=== PATIENT | female | born 1990 ===

== ENCOUNTER 2019-01-25 02:56 | Emergency (ER) | payer SELFPAY ==
[2019-01-25 03:08] VITALS: BMI 23.0
[2019-01-25 03:13] VITALS: TEMP 97.3; O2SAT 100
[2019-01-25] MEDS ORDERED: Sodium Chloride 0.9% 1,000 ML IV STA (03:33)
[2019-01-25 03:56] LABS: ALB/GLOB RATIO 1.7 (1.1-1.8); ALBUMIN 5.2 g/dL (3.0-4.8); ALT/SGPT 8 U/L (7-56); AST/SGOT 32 U/L (14-36); BLOOD UREA NITROGEN 6 mg/dL (7-21); CALCIUM 10.8 mg/dL (8.4-10.5); GFR NON-AFRICAN AMERICAN > 60; LIPASE 133 U/L (23-300)
[2019-01-25 04:00] LABS: BASO # 0.04 K/mm3 (0.0-2.0); BASO % 0.5 % (0.0-3.0); EOS # 0.1 (0.0-0.7); EOS % 0.7 % (1.5-5.0); HEMOGLOBIN 15.1 g/dL (12.0-16.0); LYMPH % 34.9 % (22.0-35.0); MEAN CELL VOLUME 88.4 fl (80.0-105.0); MEAN CORPUSCULAR HEMOGLOBIN 30.8 pg (25.0-35.0); MEAN CORPUSCULAR HGB CONC 34.9 g/dl (31.0-37.0); MEAN PLATELET VOLUME 10.7 fl (7.0-11.0); MONO # 0.6 (0.1-0.6); MONO % 6.3 % (1.0-6.0); RBC 4.9 10^6/uL (3.5-6.1); RED CELL DISTRIBUTION WIDTH 12.8 % (11.5-14.5); WHITE BLOOD COUNT 8.7 10^3/uL (4.5-11.0)
--- NOTE | 2019-01-25 04:17 | ED PDOC ---
Arrival/HPI - General Chief Complaint: GI Problem Time Seen by Provider: 01/25/19 02:58 - History of Present Illness Narrative History of Present Illness (Text): 01/25/19 04:14 A 28 year old female, whose past medical history includes anemia, presents to [facility] emergency department complaining of nausea, vomiting, diarrhea, and abdominal cramping upon waking up at 01:00 today. Patient reports she began experiencing chills and tingling throughout her body associated with symptoms. Notes also feeling weak all over her body. Patient denies any bloody stool, or any other complaints at this time. Denies any sick contacts or eating anything unusual. Past Medical History - Provider Review Nursing Documentation Reviewed: Yes - Hematological/Oncological Hx Anemia: Yes - Psychiatric Hx Substance Use: Yes Family/Social History - Physician Review Nursing Documentation Reviewed: Yes Family/Social History: No Known Family HX Smoking Status: Never Smoked Hx Alcohol Use: Yes Frequency of alcohol use: Socially Hx Substance Use: Yes Substance used: Marijuana Allergies/Home Meds Allergies/Adverse Reactions: Allergies Penicillins Allergy (Verified 01/25/19 03:07) ANAPHYLAXIS Review of Systems - Physician Review All systems were reviewed & negative as marked: Yes - Review of Systems Constitutional: Night Sweats, Other (weakness) Gastrointestinal: Diarrhea, Nausea, Vomiting, Other (abdominal cramping). absent: Stool Changes (no bloody stool) Neurological: Other (tingling throughout body associated with symptoms ) Physical Exam Vital Signs Reviewed: Yes Vital Signs Temp Pulse Resp BP Pulse Ox 01/25/19 03:12 97.3 F L 71 18 129/81 100 Temperature: Afebrile Blood Pressure: Normal Pulse: Regular Respiratory Rate: Normal Appearance: Positive for: Well-Appearing, Non-Toxic, Comfortable Pain Distress: Moderate Mental Status: Positive for: Alert and Oriented X 3 - Systems Exam Head: Present: Atraumatic, Normocephalic Respiratory/Chest: Present: Clear to Auscultation, Good Air Exchange. No: Respiratory Distress, Accessory Muscle Use Cardiovascular: Present: Regular Rate and Rhythm, Normal S1, S2. No: Murmurs Abdomen: Present: Tenderness (mild diffuse tenderness). No: Distention, Peritoneal Signs, Rebound, Guarding Back: Present: Normal Inspection Upper Extremity: Present: Normal Inspection. No: Cyanosis, Edema Lower Extremity: Present: Normal Inspection. No: Edema Neurological: Present: GCS=15, CN II-XII Intact, Speech Normal Skin: Present: Diaphoretic (mild) Psychiatric: Present: Alert, Oriented x 3, Normal Insight, Normal Concentration Medical Decision Making ED Course and Treatment: 01/25/19 04:18 Impression: 28 year old female with nausea, vomiting, diarrhea, and abdominal cramping. Plan: -- Toradol -- Zofran -- IV Fluids -- Labs -- Reassess and disposition Progress Notes: Patient given 1L NS bolus, toradol ivp for pain, zofran ivp for nausea. On re-eval, patient still reports some nausea. Reglan ivp given. Lab results reviewed and discussed with patient. Stable for discharge home. Rx for zofran 8mg odt provided. Advised outpatient followup. Return to the ED for any new or worsening symptoms. - Lab Interpretations Lab Results: Total Bilirubin 0.4 mg/dL (0.2-1.3) 01/25/19 03:30 AST 32 U/L (14-36) 01/25/19 03:30 ALT 8 U/L (7-56) 01/25/19 03:30 Alkaline Phosphatase 74 U/L (38-126) 01/25/19 03:30 Total Protein 8.3 g/dL (5.8-8.3) 01/25/19 03:30 Albumin 5.2 g/dL (3.0-4.8) H 01/25/19 03:30 Globulin 3.1 gm/dL 01/25/19 03:30 Albumin/Globulin Ratio 1.7 (1.1-1.8) 01/25/19 03:30 Lipase 133 U/L (23-300) 01/25/19 03:30 - Medication Orders Current Medication Orders: Sodium Chloride (Sodium Chloride 0.9%) 1,000 mls @ 1,000 mls/hr IV .Q1H STA Stop: 01/25/19 04:32 Last Admin: 01/25/19 03:38 Dose: 1,000 mls/hr eMAR Start Stop Document 01/25/19 03:38 RD (Rec: 01/25/19 03:38 RD [id number]) Intravenous Solution Start Date 01/25/19 Start Time 03:38 End Date 01/25/19 End time 04:38 Total Infusion Time 60 Discontinued Medications Ketorolac Tromethamine (Toradol) 30 mg IVP STAT STA Stop: 01/25/19 03:34 Ondansetron HCl (Zofran Inj) 4 mg IVP STAT STA Stop: 01/25/19 03:34 Last Admin: 01/25/19 03:50 Dose: 4 mg IVP Administration Document 01/25/19 03:50 EB (Rec: 01/25/19 03:50 EB [id number]) Charges for Administration # of IVP Administrations 1 - Scribe Statement The provider has reviewed the documentation as recorded by the Scribe Jamir Edmonds Provider Scribe Attestation: All medical record entries made by the Scribe were at my direction and personally dictated by me. I have reviewed the chart and agree that the record accurately reflects my personal performance of the history, physical exam, medical decision making, and the department course for this patient. I have also personally directed, reviewed, and agree with the discharge instructions and disposition. Disposition/Present on Arrival - Present on Arrival Any Indicators Present on Arrival: No History of DVT/PE: No History of Uncontrolled Diabetes: No Urinary Catheter: No History of Decub. Ulcer: No History Surgical Site Infection Following: None - Disposition Have Diagnosis and Disposition been Completed?: Yes Diagnosis: Gastroenteritis Disposition: HOME/ ROUTINE Disposition Time: 07:00 Condition: STABLE Discharge Instructions (ExitCare): Gastroenteritis (ED) Additional Instructions: EVELINE JOSUE, thank you for letting us take care of you today. Your provider was Xiomara Toussaint MD and you were treated for SOB. The emergency medical care you received today was directed at your acute symptoms. If you were p rescribed any medication, please fill it and take as directed. It may take several days for your symptoms to resolve. Return to the Emergency Department if your symptoms worsen, do not improve, or if you have any other problems. Please contact your doctor or call one of the physicians/clinics you have been referred to that are listed on the Patient Visit Information form that is included in your discharge packet. Bring any paperwork you were given at discharge with you along with any medications you are taking to your follow up visit. Our treatment cannot replace ongoing medical care by a primary care provider outside of the emergency department. Thank you for allowing the [facility] team to be part of your care today. If you had an X-Ray or CT scan: A Radiologist will review the ED reading if any change in treatment is needed we will contact you. If you had a blood, urine, or wound culture: It will take several days for the results, if any change in treatment is needed we will contact you. If you had an STI test: It will take 48 hours for the results. Please call after 1 week if you have not heard back. Prescriptions: Ondansetron ODT [Zofran ODT] 8 mg PO TID PRN #9 odt PRN Reason: Nausea/Vomiting Forms: [facility] (Pashto), WORK NOTE
[2019-01-25 06:10] VITALS: BP 118/93; PULSE 51; RESP 19
== END 2019-01-25 07:54 | disposition home or self-care (01) ==
LOC: ED 02:56
DX: K52.9 Noninfective gastroenteritis and colitis, unspecified (principal); D64.9 Anemia, unspecified
CPT/HCPCS: 80053; 81025; 83690; 83735; 85025; 96361; 96374; 96375; 99284; J1885; J2405; J2765; J7030